=== PATIENT | female | born 1945 | race Caucasian/White ===

== ENCOUNTER 2018-05-13 07:47 | Day surgery (SDC) | payer BC ==
[~2018-05-13] VITALS: Ht 154.9 cm; Wt 82.1 kg
[~2018-05-13 07:47] MED LIST: ALLEGRA ALLERG180 M1 PO; ATEN25 PO; Beta Carot25000 UNIT PO; CALCIUM; CELE200; DESL5; ESOM20; IRON150C PO; LEVO-T125 MCG PO; LEVSOD25; MOMENI; MONT10T PO; POTBIC25 PO; RANITIDINE PO; SULI150 PO; TYLENOL ARTHRITIS; VITAMIN B-650 MG PO; [UNRECOGNIZED DRUG - OTHER]
--- NOTE | 2018-05-13 08:28 | NUR ---
History, Chart, Medications and Allergies reviewed before start of procedure. Lungs clear T/O to Auscultation. Patient confirms NPO status and agrees with scheduled surgery. Patient states colon prep results clear.
--- NOTE | 2018-05-13 09:00 | NUR ---
05/13/[address] ANESTHESIA PATIENT CONFIRMS NPO STATUS AND AGREES WITH SCHEDULED PROCEDURE. History, Chart, Medications and Allergies reviewed before start of procedure. O2 VIA N/C INTACT THROUGHOUT SEDATION/PROCEDURE.
--- NOTE | 2018-05-13 09:31 | NUR ---
PT LETHARGIC UPON RETURN FROM PROCEDURE THOUGH WAKES EASILY WITH VERBAL STIMULI. NO C/O PAIN OR DISCOMFORT. AT BEDSIDE.
--- NOTE | 2018-05-13 10:06 | NUR ---
PT WOKE, DRANK PO FLUIDS, HAD NO C/O DURING STAY. ABLE TO AMBULATE AT BEDSIDE WITHOUT DIFFICULTY. REVIEWED DISCHARGE INSTRUCTIONS WITH PATIENT AND , BOTH OF WHOM VERBALIZE UNDERSTANDING OF ALL. IV D/C TIP INTACT AND PT D/C HOME WITH TO DRIVE HER.
== END 2018-05-13 22:56 | disposition home or self-care (01) ==
LOC: ORSCMMR 07:47 → ORD 09:15 → ORSCMMR 09:15
PROVIDERS: Surgery
PROC: 0DJD8ZZ Inspection of Lower Intestinal Tract, Via Natural or Artificial Opening Endoscopic (ICD-10-PCS; principal; 2018-05-13 09:15)
DX: Z12.11 Encounter for screening for malignant neoplasm of colon (principal); Z86.010 Personal history of colon polyps; K57.30 Diverticulosis of large intestine without perforation or abscess without bleeding; K64.8 Other hemorrhoids; I10 Essential (primary) hypertension; E03.9 Hypothyroidism, unspecified; E11.9 Type 2 diabetes mellitus without complications; E66.9 Obesity, unspecified; Z68.34 Body mass index [BMI] 34.0-34.9, adult; G47.33 Obstructive sleep apnea (adult) (pediatric); J44.9 Chronic obstructive pulmonary disease, unspecified; Z87.891 Personal history of nicotine dependence; Z79.899 Other long term (current) drug therapy
CPT/HCPCS: 82947; J7120

== ENCOUNTER → 2019-04-18 | Outpatient (CLI) | payer BC | END | disposition home or self-care (01) | LOC: LAB SHORT 18:11 → LAB 18:11 | DX: L08.9 Local infection of the skin and subcutaneous tissue, unspecified (principal) | CPT/HCPCS: 87070; 87147; 87205 ==